=== PATIENT | male | born 1955 | race Asian ===

== ENCOUNTER 2017-05-16 00:26 | Emergency (ER) | payer OTHER ==
[2017-05-16 03:03] VITALS: BP 135/85; PULSE 85; TEMP 98.7; BMI 30.2
--- NOTE | 2017-05-16 03:16 | PDOC ---
History of Present Illness - History of Present Illness Initial Comments: 05/16/17 03:19 Patient is a 62 M with PMHx of arthritis, who present to the ED for right knee pain for 1 day. Patient denies trauma or injury to right knee and believes he has gout. Patient states this is the first time he has experienced this pain. PCP: Jacobo Yanez <Tere Pemberton - Last Filed: 05/16/17 03:25> - General History Source: Patient <MlTriston - Last Filed: 05/16/17 04:30> - General Chief Complaint: Pain, Acute Stated Complaint: R KNEE PAIN Time Seen by Provider: 05/16/17 03:14 Past History <Tere Pemberton - Last Filed: 05/16/17 03:25> - Past Medical History Cardiac Disorders: Yes (CAD) - Surgical History Cardiac Surgery: Yes (STENT) - Suicide/Smoking/Psychosocial Hx Smoking Status: No Smoking History: Never smoked Have you smoked in the past 12 months: No Number of Cigarettes Smoked Daily: 0 Information on smoking cessation initiated: No Hx Alcohol Use: No Drug/Substance Use Hx: No Substance Use Type: Alcohol <Triston Bull - Last Filed: 05/16/17 04:30> - Past Medical History Allergies/Adverse Reactions: Allergies Allergy/AdvReac Type Severity Reaction Status Date / Time No Known Allergies Allergy Verified 05/16/17 03:01 Home Medications: Ambulatory Orders Aspirin [Aspirin EC] 81 mg PO DAILY 05/16/17 Atorvastatin Ca [Lipitor] 20 mg PO HS 05/16/17 Carvedilol [Coreg] 40 mg PO DAILY 05/16/17 Cholecalciferol (Vitamin D3) [Vitamin D3 -] 1,000 unit PO DAILY 05/16/17 Indomethacin [Indocin -] 50 mg PO TID #30 capsule 05/16/17 [place]-3 Acid Ethyl Esters [Lovaza] 1 gm PO DAILY 05/16/17 Oxycodone HCl/Acetaminophen [Percocet 5-325 mg Tablet] 1 - 2 tab PO Q6H #20 tablet MDD 4 05/16/17 Valsartan [Diovan] 160 mg PO DAILY 05/16/17 Review of Systems - Review of Systems Comments:: 05/16/17 03:20 CONSTITUTIONAL: Absent: fever, no chills, no fatigue EYES: Absent: visual changes ENT: Absent: ear pain, no sore throat CARDIOVASCULAR: Absent: chest pain, no palpitations RESPIRATORY: Absent: cough, no SOB GI: Absent: abdominal pain, no nausea, no vomiting, no constipation, no diarrhea GENITOURINARY: Absent: dysuria, no frequency, no hematuria MUSCULOSKELETAL: Present: right knee pain Absent: back pain, no myalgia SKIN: Absent:rash <Tere Pemberton - Last Filed: 05/16/17 03:25> *Physical Exam - Vital Signs Last Vital Signs Temp Pulse Resp BP Pulse Ox 98.7 F 85 14 135/85 99 05/16/17 03:01 05/16/17 03:01 05/16/17 03:01 05/16/17 03:01 05/16/17 03:01 - Physical Exam Comments: 05/16/17 03:22 GENERAL: Well-appearing, well-nourished. No apparent distress. HEENT: Normocephalic, atraumatic. PERRL, EOM intact. CARDIOVASCULAR: Normal S1, S2. Regular rate and rhythm. PULMONARY: Clear to auscultation bilaterally. ABDOMEN: Soft, non-distended, non-tender. EXTREMITIES: Tenderness and swelling to right knee minimal erythema. Normal ROM in all four extremities. No gross deformities. SKIN: Warm, dry. No rash NEUROLOGICAL: No focal neurological deficits. <Tere Pemberton - Last Filed: 05/16/17 03:25> - Vital Signs Last Vital Signs Temp Pulse Resp BP Pulse Ox 98.7 F 85 14 135/85 99 05/16/17 03:01 05/16/17 03:01 05/16/17 03:01 05/16/17 03:01 05/16/17 03:01 <Triston Bull - Last Filed: 05/16/17 04:30> *DC/Admit/Observation/Transfer - Attestations Scribe Attestion: 05/16/17 03:22 Documentation prepared by Tere Pemberton, acting as medical collections specialist for Triston Bull MD. <Tere Pemberton - Last Filed: 05/16/17 03:25> - Discharge Dispostion Admit: No <Triston Bull - Last Filed: 05/16/17 04:30> Diagnosis at time of Disposition: Gouty arthritis Knee pain, right Qualifiers: Chronicity: acute Qualified Code(s): M25.561 - Pain in right knee - Discharge Dispostion Disposition: HOME Condition at time of disposition: Stable - Prescriptions Prescriptions: Indomethacin [Indocin -] 50 mg PO TID #30 capsule Oxycodone HCl/Acetaminophen [Percocet 5-325 mg Tablet] 1 - 2 tab PO Q6H #20 tablet MDD 4 - Referrals Referrals: Jacobo Yanez MD [Primary Care Provider] - - Patient Instructions Printed Discharge Instructions: DI for Gout, DI for Knee Pain Additional Instructions: Please follow up with your primary care doctor for re-evaluation. TAke medication as directed. Return if any problems - Post Discharge Activity Forms/Work/School Notes: Back to Work
[2017-05-16] MEDS ORDERED: INDOMETHACIN 50 MG CAPSULE PO ONE (03:17)
== END 2017-05-16 04:40 | disposition home or self-care (01) ==
LOC: JER 00:26
DX: M10.9 Gout, unspecified (principal); I25.10 Atherosclerotic heart disease of native coronary artery without angina pectoris; I10 Essential (primary) hypertension; Z95.5 Presence of coronary angioplasty implant and graft
CPT/HCPCS: 36415; 84550; 99282-25